=== PATIENT | male | born 1940 | race Caucasian/White ===

== ENCOUNTER 2023-09-19 08:19 | Outpatient (RCR) | payer OTHER, SELFPAY ==
[2023-09-19 08:35] VITALS: BP 154/72
[2023-09-19 09:04] VITALS: BP 148/76
[2023-09-19 09:10] VITALS: BP 141/76
== END 2023-09-19 15:14 | disposition home or self-care (01) ==
LOC: OID 08:19
PROVIDERS: ATTENDING PHYSICIAN Internal Medicine Hematology & Oncology; FAMILY PHYSICIAN Physician Assistant Medical
DX: D75.1 Secondary polycythemia (principal)
CPT/HCPCS: 99195

== ENCOUNTER 2023-11-18 08:10 | Outpatient (RCR) | payer OTHER, SELFPAY ==
[2023-11-18 08:45] VITALS: BP 145/72
[2023-11-18 09:13] VITALS: BP 137/87
[2023-11-18 09:20] VITALS: BP 133/75
== END 2023-11-19 08:22 | disposition home or self-care (01) ==
LOC: OID 08:10
PROVIDERS: ATTENDING PHYSICIAN Internal Medicine Hematology & Oncology; FAMILY PHYSICIAN Physician Assistant Medical
DX: D75.1 Secondary polycythemia (principal)
CPT/HCPCS: 99195

== ENCOUNTER 2024-04-21 08:18 | Outpatient (RCR) | payer OTHER, SELFPAY ==
[2024-04-21 08:38] VITALS: BP 169/84
[2024-04-21 09:10] VITALS: BP 154/81
[2024-04-21 09:13] VITALS: BP 154/79
== END 2024-04-21 15:15 | disposition home or self-care (01) ==
LOC: OID 08:18
PROVIDERS: ATTENDING PHYSICIAN Internal Medicine Hematology & Oncology; FAMILY PHYSICIAN Physician Assistant Medical
DX: D75.1 Secondary polycythemia (principal)
CPT/HCPCS: 99195

== ENCOUNTER 2024-06-19 08:58 | Outpatient (RCR) | payer OTHER, SELFPAY ==
[2024-06-19 09:30] VITALS: BP 166/87
[2024-06-19 09:58] VITALS: BP 168/90
[2024-06-19 10:03] VITALS: BP 141/83
== END 2024-07-16 13:41 | disposition home or self-care (01) ==
LOC: OID 08:58
PROVIDERS: ATTENDING PHYSICIAN Internal Medicine Hematology & Oncology; FAMILY PHYSICIAN Physician Assistant Medical
DX: D75.1 Secondary polycythemia (principal)
CPT/HCPCS: 99195

== ENCOUNTER 2024-09-17 09:11 | Outpatient (RCR) | payer OTHER, SELFPAY ==
[2024-09-17 09:24] VITALS: BP 162/86
[2024-09-17 10:00] VITALS: BP 149/93
[2024-09-17 10:10] VITALS: BP 162/84
== END 2024-10-14 23:59 | disposition home or self-care (01) ==
LOC: OID 09:11
PROVIDERS: ATTENDING PHYSICIAN Internal Medicine Hematology & Oncology; FAMILY PHYSICIAN Physician Assistant Medical
DX: D75.1 Secondary polycythemia (principal)
CPT/HCPCS: 99195

== ENCOUNTER 2024-11-18 08:12 | Outpatient (RCR) | payer OTHER, SELFPAY ==
[2024-11-18 08:58] VITALS: BP 159/80
[2024-11-18 09:36] VITALS: BP 160/74
== END 2024-12-14 23:59 | disposition home or self-care (01) ==
LOC: OID 08:12
PROVIDERS: ATTENDING PHYSICIAN Internal Medicine Hematology & Oncology; FAMILY PHYSICIAN Physician Assistant Medical
DX: D75.1 Secondary polycythemia (principal)
CPT/HCPCS: 99195

== ENCOUNTER 2024-12-22 14:02 | Outpatient (RCR) | payer OTHER, SELFPAY ==
[2024-12-22 14:31] VITALS: BP 134/68
[2024-12-22 15:11] VITALS: BP 134/70
[2024-12-22 15:14] VITALS: BP 132/68
== END 2025-01-14 23:59 | disposition home or self-care (01) ==
LOC: OID 14:02
PROVIDERS: ATTENDING PHYSICIAN Internal Medicine Hematology & Oncology; FAMILY PHYSICIAN Physician Assistant Medical
DX: D75.1 Secondary polycythemia (principal); D45 Polycythemia vera (principal)
CPT/HCPCS: 99195

== ENCOUNTER → 2025-01-05 07:57 | Outpatient (REF) | payer OTHER, SELFPAY | LOC: HWRCS 07:57 | PROVIDERS: ATTENDING PHYSICIAN Student in an Organized Health Care Education/Training Program; FAMILY PHYSICIAN Family Medicine | DX: I42.8 Other cardiomyopathies (principal) | CPT/HCPCS: 93306 ==

== ENCOUNTER 2025-01-18 09:04 | Outpatient (RCR) | payer OTHER, SELFPAY ==
[2025-01-18 09:46] VITALS: BP 149/74
[2025-01-18 10:12] VITALS: BP 160/81
== END 2025-02-12 13:20 | disposition home or self-care (01) ==
LOC: OID 09:04
PROVIDERS: ATTENDING PHYSICIAN Internal Medicine Hematology & Oncology; FAMILY PHYSICIAN Physician Assistant Medical
DX: D45 Polycythemia vera (principal); D75.1 Secondary polycythemia
CPT/HCPCS: 99195

== ENCOUNTER 2025-02-18 08:14 | Outpatient (RCR) | payer OTHER, SELFPAY ==
[2025-02-18 08:31] VITALS: BP 160/79
[2025-02-18 08:50] VITALS: BP 160/77
[2025-02-18 08:55] VITALS: BP 149/84
== END 2025-03-16 13:04 | disposition home or self-care (01) ==
LOC: OID 08:14
PROVIDERS: ATTENDING PHYSICIAN Internal Medicine Hematology & Oncology; FAMILY PHYSICIAN Physician Assistant Medical
DX: D45 Polycythemia vera (principal); D75.1 Secondary polycythemia
CPT/HCPCS: 99195

== ENCOUNTER 2025-03-19 08:11 | Outpatient (RCR) | payer OTHER, SELFPAY ==
[2025-03-19 08:37] VITALS: BP 145/72
[2025-03-19 09:14] VITALS: BP 136/72
[2025-03-19 09:15] VITALS: BP 140/64
== END 2025-04-15 13:11 | disposition home or self-care (01) ==
LOC: OID 08:11
PROVIDERS: ATTENDING PHYSICIAN Internal Medicine Hematology & Oncology; FAMILY PHYSICIAN Physician Assistant Medical
DX: D45 Polycythemia vera (principal); D75.1 Secondary polycythemia
CPT/HCPCS: 99195

== ENCOUNTER 2025-05-18 13:26 | Outpatient (RCR) | payer OTHER, SELFPAY ==
[2025-05-18 13:43] VITALS: BP 153/64
[2025-05-18 14:13] VITALS: BP 148/68
== END 2025-05-19 11:01 | disposition home or self-care (01) ==
LOC: OID 13:26
PROVIDERS: ATTENDING PHYSICIAN Internal Medicine Hematology & Oncology; FAMILY PHYSICIAN Physician Assistant Medical
DX: D45 Polycythemia vera (principal); D75.1 Secondary polycythemia
CPT/HCPCS: 99195